=== PATIENT | female | born 1990 | race Caucasian/White ===

== ENCOUNTER 2017-01-05 14:18 | Emergency (ER) | payer MEDICAID, OTHER ==
[~2017-01-05] VITALS: Ht 175.3 cm; Wt 122.3 kg
[~2017-01-05 14:18] MED LIST: ALBUAER3 INH; ZITHTAB PO
[2017-01-05 14:28] VITALS: BP 170/85; PULSE 110; RESP 18; TEMP 98.4; O2SAT 100
--- NOTE | 2017-01-05 15:45 | PD ---
HPI Chief Complaint: Skin Problem Time Seen by Provider: 15:27 Travel History International Travel<30 days: No Contact w/Intl Traveler<30days: No Traveled to known affect area: No History of Present Illness HPI 26-year-old female presents to the emergency room for evaluation of increased redness and warmth 2 pack bilateral thighs that she first noticed yesterday morning. Patient states 2 nights ago she went to a "dirty bar"and the back of her upper calves were touching the dirty bench. She woke up the following day with extreme itchiness. She applied calamine lotion but has not taken anything [id number]. States with how red it is, she is concerned for infection. She has also developed some pain to the area. No chronic medical conditions or daily medications. Denies fever, chills, nausea, vomiting. PFSH Past Medical History Medical History: Denies Significant Hx Diminished Hearing: No Immunizations Current: Yes Tetanus Vaccination: Unknown ?: Not LMP: 12/16/16 : 1 Para: 1 Past Surgical History Section: Yes (NOV 20 2011) Social History Alcohol Use: Yes (OCC) Tobacco Use: Yes (1/2 PACK PER WEEK) Substance Use: Yes (OCCASIONAL THC AND ETOH USE) Allergies-Medications (Allergen,Severity, Reaction): Coded Allergies: adhesive (Unverified Allergy, Severe, RASH, 01/05/17) sulfamethoxazole (Unverified Allergy, Severe, LIP SWELLING, 01/05/17) trimethoprim (Unverified Allergy, Severe, LIP SWELLING, 01/05/17) Reported Meds & Prescriptions Reported Meds & Active Scripts Active No Active Prescriptions or Reported Medications Review of Systems Except as stated in HPI: all other systems reviewed are Neg Physical Exam Narrative GENERAL: Well-nourished, well-developed female in no acute distress. Afebrile. Ambulatory. SKIN: Focused skin assessment warm/dry. There is an indurated area in the bilateral proximal lower legs which measures about 8 cm on the right and 4 cm on the left. No fluctuance or draining. There does appear to be small bite ramirez in the center. HEAD: Normocephalic. EYES: No scleral icterus. No injection or drainage. NECK: Supple, trachea midline. No JVD or lymphadenopathy. CARDIOVASCULAR: Regular rate and rhythm without murmurs, gallops, or rubs. RESPIRATORY: Breath sounds equal bilaterally. No accessory muscle use. MUSCULOSKELETAL: No cyanosis, or edema. Data Data Last Documented VS Vital Signs Date Time Temp Pulse Resp B/P (MAP) Pulse Ox O2 Delivery O2 Flow Rate FiO2 01/05/17 14:28 98.4 110 18 170/85 (113) 100 MDM Medical Decision Making Medical Screen Exam Complete: Yes Emergency Medical Condition: Yes Medical Record Reviewed: Yes Differential Diagnosis Cellulitis, allergic reaction, infection, abrasion Narrative Course 26-year-old female presents to the emergency room for evaluation of warm, indurated, erythematous lesions to bilateral lower legs she first noticed yesterday morning. Patient states she sat on a very dirty bench in a very dirty bar prior to onset. Physical exam is consistent with allergic reaction to insect bite but given how red and hot it is, patient will be treated empirically with clindamycin. There is no lymphangitis. No systemic signs of infection. She was told to continue applying calamine lotion and take Benadryl at night. Told to follow up with her primary care physician or return for worsening symptoms. She understands and agrees to plan. Diagnosis Primary Impression: Cellulitis, leg Qualified Codes: L03.119 - Cellulitis of unspecified part of limb Referrals: Primary Care Physician Additional Instructions: Rest and drink plenty of fluids. Take clindamycin as directed, until gone. Follow up with a primary care physician. Return to emergency room for worsening symptoms, as discussed. Med/Other Pt SpecificInfo: Prescription(s) given Scripts No Active Prescriptions or Reported Meds Disposition: 01 DISCHARGE HOME Condition: Stable Joan Braxton Jan 05, 2017 15:45
[2017-01-05 15:46] VITALS: BP 149/79; PULSE 99; RESP 16; O2SAT 98
[2017-01-05] MEDS ORDERED: CLIN1CAP6 PO (15:46)
== END 2017-01-05 16:27 | disposition home or self-care (01) ==
LOC: PHEFT 14:18
DX: L03.119 Cellulitis of unspecified part of limb (principal); F17.200 Nicotine dependence, unspecified, uncomplicated
CPT/HCPCS: 99283

== ENCOUNTER 2017-08-26 10:11 | Emergency (ER) | payer SELFPAY ==
[~2017-08-26] VITALS: Ht 175.3 cm; Wt 120.0 kg
[~2017-08-26 10:11] MED LIST changes: -ALBUAER3 INH; +CLIN300C5 PO; -ZITHTAB PO
[2017-08-26 10:17] VITALS: BP 161/88; PULSE 93; RESP 16; TEMP 97.9; O2SAT 100
[2017-08-26] MEDS ORDERED: SODIUM CHLOR 0.9% 1000 ML INJ 1,000 ML IV ONE (11:00)
--- NOTE | 2017-08-26 11:08 | PD ---
HPI Chief Complaint: GI Complaint Time Seen by Provider: 10:58 Travel History International Travel<30 days: No Contact w/Intl Traveler<30days: No Traveled to known affect area: No History of Present Illness HPI This 26-year-old female says she has not been healing well for several days. She has been feeling tired during the day. She has had some nausea and sporadic vomiting. She feels weak. Her last period was at the end of June. She has been once before and has a 5-year-old child pain. She has not had any vaginal bleeding. She has been having some lower abdominal cramping PFS Past Medical History Diminished Hearing: No Immunizations Current: Yes Influenza Vaccination: No ?: LMP: 07/19/2017 : 1 Para: 1 Past Surgical History Section: Yes (NOV 20 2011) Social History Alcohol Use: Yes (OCC) Tobacco Use: Yes (1/2 PACK PER WEEK/quit) Substance Use: Yes (OCCASIONAL THC AND ETOH USE) Allergies-Medications (Allergen,Severity, Reaction): Coded Allergies: adhesive (Unverified Allergy, Severe, RASH, 08/26/17) sulfamethoxazole (Unverified Allergy, Severe, LIP SWELLING, 08/26/17) trimethoprim (Unverified Allergy, Severe, LIP SWELLING, 08/26/17) Reported Meds & Prescriptions Reported Meds & Active Scripts Active No Active Prescriptions or Reported Medications Review of Systems General / Constitutional: No: Fever, Chills Eyes: No: Diploplia HENT: Positive: Lightheadedness, No: Headaches, Vertigo Cardiovascular: No: Chest Pain or Discomfort Respiratory: No: Cough, Shortness of Breath Gastrointestinal: Positive: Nausea, Vomiting Genitourinary: No: Urgency Skin: No Rash Neurologic: Positive: Weakness Physical Exam Narrative GENERAL: Well-developed female SKIN: Focused skin assessment warm/dry. HEAD: Atraumatic. Normocephalic. EYES: Pupils equal and round. No scleral icterus. No injection or drainage. ENT: No nasal bleeding or discharge. Mucous membranes pink and moist. NECK: Trachea midline. No JVD. CARDIOVASCULAR: Regular rate and rhythm. No murmur appreciated. RESPIRATORY: No accessory muscle use. Clear to auscultation. Breath sounds equal bilaterally. GASTROINTESTINAL: Abdomen soft, mild lower abdominal tenderness nondistended. Hepatic and splenic margins not palpable. MUSCULOSKELETAL: No obvious deformities. No clubbing. No cyanosis. No edema. NEUROLOGICAL: Awake and alert. No obvious cranial nerve deficits. Motor grossly within normal limits. Normal speech. PSYCHIATRIC: Appropriate mood and affect; insight and judgment normal. Data Data Last Documented VS Vital Signs Date Time Temp Pulse Resp B/P (MAP) Pulse Ox O2 Delivery O2 Flow Rate FiO2 08/26/17 12:05 77 18 131/61 (84) 98 Room Air 08/26/17 10:17 97.9 Orders Orders Complete Blood Count With Diff (08/26/17 10:58) Basic Metabolic Panel (Bmp) (08/26/17 10:58) Beta Hcg (Quant/Titer) (08/26/17 10:58) Sodium Chlor 0.9% 1000 Ml Inj (Ns 1000 M (08/26/17 11:00) Ed Urine Pregnancytest Poc (08/26/17 11:34) Us Pelvis (Ques Preg/Ectopic) (08/26/17 12:03) Labs Laboratory Tests Test 08/26/17 11:06 White Blood Count 9.8 TH/MM3 Red Blood Count 5.15 MIL/MM3 Hemoglobin 13.6 GM/DL Hematocrit 40.1 % Mean Corpuscular Volume 78.0 FL Mean Corpuscular Hemoglobin 26.4 PG Mean Corpuscular Hemoglobin Concent 33.8 % Red Cell Distribution Width 15.2 % Platelet Count 414 TH/MM3 Mean Platelet Volume 7.7 FL Neutrophils (%) (Auto) 72.3 % Lymphocytes (%) (Auto) 19.6 % Monocytes (%) (Auto) 5.1 % Eosinophils (%) (Auto) 0.6 % Basophils (%) (Auto) 2.4 % Neutrophils # (Auto) 7.1 TH/MM3 Lymphocytes # (Auto) 1.9 TH/MM3 Monocytes # (Auto) 0.5 TH/MM3 Eosinophils # (Auto) 0.1 TH/MM3 Basophils # (Auto) 0.2 TH/MM3 CBC Comment DIFF FINAL Differential Comment Blood Urea Nitrogen 6 MG/DL Creatinine 0.51 MG/DL Random Glucose 94 MG/DL Calcium Level 8.7 MG/DL Sodium Level 138 MEQ/L Potassium Level 3.8 MEQ/L Chloride Level 106 MEQ/L Carbon Dioxide Level 23.8 MEQ/L Anion Gap 8 MEQ/L Estimat Glomerular Filtration Rate 147 ML/MIN Human Chorionic Gonadotropin, Quant 42877 MIU/ML MDM Medical Decision Making Medical Screen Exam Complete: Yes Emergency Medical Condition: Yes Medical Record Reviewed: Yes Differential Diagnosis Differential includes viral syndrome, , gastroenteritis Narrative Course Pelvic ultrasound shows a 6 week 1 day viable IUP. Patient is stable for discharge Diagnosis Primary Impression: Scripts Ondansetron Odt (Zofran Odt) 4 Mg Tab 4 MG SL Q8HR Y for Nausea/Vomiting, #15 TAB 0 Refills Prov: Luis Eduardo Mcneil MD 08/26/17 Disposition: 01 DISCHARGE HOME Condition: Stable Luis Eduardo Mcneil MD Aug 26, 2017 11:08
[2017-08-26 11:14] LABS: AUTOMATED NEUTROPHIL # 7.1 TH/MM3 (1.8-7.7); BASOPHIL # 0.2 TH/MM3 (0-0.2); BASOPHIL % 2.4 % (0.0-2.0); EOSINOPHIL # 0.1 TH/MM3 (0-0.4); EOSINOPHIL % 0.6 % (0.0-4.0); HEMATOCRIT 40.1 % (35.0-46.0); HEMOGLOBIN 13.6 GM/DL (11.6-15.3); LYMPH % 19.6 % (9.0-44.0); LYMPHOCYTE # 1.9 TH/MM3 (1.0-4.8); MEAN CORPUSCULAR HEMOGLOBIN 26.4 PG (27.0-34.0); MEAN CORPUSCULAR HGB CONC 33.8 % (32.0-36.0); MEAN PLATELET VOLUME 7.7 FL (7.0-11.0); MONO % 5.1 % (0.0-8.0); MONOCYTE # 0.5 TH/MM3 (0-0.9); NEUT % 72.3 % (16.0-70.0); PLATELET COUNT 414 TH/MM3 (150-450); RED BLOOD COUNT 5.15 MIL/MM3 (4.00-5.30); RED CELL DISTRIBUTION WIDTH 15.2 % (11.6-17.2); WHITE BLOOD COUNT 9.8 TH/MM3 (4.0-11.0)
[2017-08-26 11:24] LABS: CALCIUM 8.7 MG/DL (8.5-10.1)
[2017-08-26 11:25] LABS: BICARBONATE 23.8 MEQ/L (21.0-32.0)
[2017-08-26 11:28] LABS: CREATININE 0.51 MG/DL (0.50-1.00)
[2017-08-26 12:05] VITALS: BP 131/61; PULSE 77; RESP 18; O2SAT 98
--- NOTE | 2017-08-26 12:43 | RADRPT ---
EXAM DATE: 08/26/2017 12:29 PM EDT AGE/SEX: 26 years / Female INDICATIONS: Lower abdominal pain, nausea and vomiting. CLINICAL DATA: This is the patient's initial encounter. Patient reports that signs and symptoms have been present for 4 - 6 days and indicates a pain score of 5/10. MEDICAL/SURGICAL HISTORY: . section. Right arm surgery. COMPARISON: [facility] – [place], US PELVIS ([facility] PREG/ECTOPIC), 04/12/2011. . MEASUREMENTS: Uterus:__10.6 x 5.4 x 6.0 cm Endometrial Stripe:__16 mm Right Ovary:__ 3.0 x 3.2 x 1.9 cm Left Ovary:__ 3.2 x 3.1 x 3.5 cm FINDINGS: Uterus: Myometrium has a homogeneous appearance without mass. In the superior aspect of the endometr ial cavity, there is a gestational sac measuring approximately 1.8 x 1.0 x 1.6 cm. Embryo is identifi ed with crown-rump length measurement of 0.44 cm indicating a gestational age of 6 weeks and 1 day. Y olk sac is observed. M-mode Doppler documents a heart rate of 132 bpm. Right Ovary: Within normal limits. Left Ovary: Within normal limits. Other: No free fluid. CONCLUSION: 1. Findings demonstrate an intrauterine with estimated gestational age of 6 weeks and 1 da y. Normal heart rate is documented. 2. Remainder of the examination is within normal limits. Electronically signed by: Mingo Wagoner MD 08/26/2017 12:42 PM EDT
[2017-08-26] MEDS ORDERED: ZOFR4TAB3 SL (12:52)
[2017-08-26 13:10] VITALS: BP 139/92
== END 2017-08-26 15:00 | disposition home or self-care (01) ==
LOC: PHED 10:11
DX: O26.891 Other specified pregnancy related conditions, first trimester (principal); R10.30 Lower abdominal pain, unspecified; O21.9 Vomiting of pregnancy, unspecified; R53.1 Weakness; Z3A.01 Less than 8 weeks gestation of pregnancy; Z87.891 Personal history of nicotine dependence; Z88.2 Allergy status to sulfonamides; Z88.8 Allergy status to other drugs, medicaments and biological substances; Z34.91 Encounter for supervision of normal pregnancy, unspecified, first trimester
CPT/HCPCS: 76700; 80048; 84702; 84703; 85025; 96360; 99284; J7030